=== PATIENT | female | born 1955 | race Caucasian/White ===

== ENCOUNTER 2016-10-17 11:30 | Inpatient (IN) | payer MEDICARE, OTHER ==
[~2016-10-17] VITALS: Ht 157.5 cm; Wt 42.6 kg
[~2016-10-17 11:30] MED LIST: ANTIVERT 25MG25 MG PO; CELEXA40 MG PO; DIFLUCAN 100MG100 MG PO; INDERAL LA 80MG80 MG PO; KEPPRA XR500 MG PO; NEXIUM 40MG40 MG PO; OMNICEF 300MG300 MG PO; PAMELOR 25MG25 MG PO; TOPAMAX50 MG PO; ZOFRAN 4MG T4 MG/TAB PO
[2016-10-17] MEDS ORDERED: PROLIA60 MG/ML SC (12:01)
[2016-10-17] MEDS ORDERED: D3-5050000 IU PO (12:02)
[2016-10-17 12:39] VITALS: BP 109/60; PULSE 65; TEMP 97.4
[2016-10-17 12:43] VITALS: BP 109/60; PULSE 65; TEMP 97.4
[2016-10-17 15:35] VITALS: BP 126/58; PULSE 73; TEMP 97.4
[2016-10-17 16:35] VITALS: BP 116/57; PULSE 73
[2016-10-17 18:20] LABS: BASO % 0.3 % (0.0-2.0); EOS # 0.2 (0.0-0.7); EOS % 3.3 % (0-4.0); GRAN # 4.2 (1.4-6.5); GRAN % 69.5 % (42.2-75.2); LYMPH # 1.2 (1.2-3.4); LYMPH % 20.6 % (20.0-51.0); MEAN CELL VOLUME 95 fl (80.0-100.0); MEAN CORPUSCULAR HGB CONC 32 g/dl (33.0-37.0); MEAN PLATELET VOLUME 10.4 fl (7.4-10.4); MONO # 0.4 (0.1-0.6); MONO % 5.8 % (1.7-9.3); PLATELET COUNT 148 K/mm3 (130-400); RED BLOOD COUNT 3.78 M/mm3 (4.10-5.30); REDCELL DISTRIBUTION WIDTH-CV 14.7 % (11.5-14.5)
[2016-10-17 18:22] LABS: HEMATOCRIT 35.9 % (37.0-47.0); HEMOGLOBIN 11.6 g/dl (12.5-16.0); MEAN CORPUSCULAR HEMOGLOBIN 31 pg (27.0-31.0)
[2016-10-17 18:29] LABS: ADJUSTED CALCIUM 8.5 mg/dL (8.4-10.2); ALBUMIN 2.5 gm/dL (3.5-5.0); BILIRUBIN,TOTAL 0.6 mg/dL (0.0-1.0); CALCIUM 7.3 mg/dL (8.4-10.2); CREATININE, serum 0.74 mg/dL (0.52-1.25); MAGNESIUM 1.7 mg/dL (1.6-2.3); PHOSPHOROUS 2.6 mg/dL (2.5-4.5); TOTAL PROTEIN 5.1 gm/dL (6.4-8.2)
[2016-10-17 20:33] VITALS: BP 129/49; PULSE 73; TEMP 97.5
[2016-10-17 23:12] VITALS: BP 113/65; PULSE 77; TEMP 98.5
[2016-10-17 23:54] LABS: PH 5 (5-8); SQUAMOUS EPITHELIAL 0-2 /hpf; URINE APPEARANCE Cloudy; URINE BACTERIA Moderate /hpf; URINE BILIRUBIN Negative (NEGATIVE); URINE BLOOD Negative (NEGATIVE); URINE COLOR Yellow; URINE GLUCOSE Negative (NEGATIVE); URINE KETONE 1+ (NEGATIVE); URINE RBC 0-2 /hpf; URINE UROBILINOGEN Negative (NEGATIVE); URINE WBC 20-50 /hpf
[2016-10-18 03:55] VITALS: BP 106/64; PULSE 78; TEMP 97.7
[2016-10-18 07:29] LABS: ADD PATHOLOGY DIFF REVIEW NO
[2016-10-18 07:38] LABS: INR 1.2 (0.8-3.0); PROTHROMBIN TIME 13.1 SECONDS (9.7-12.8)
[2016-10-18 07:40] LABS: MEAN CELL VOLUME 96 fl (80.0-100.0); MEAN CORPUSCULAR HGB CONC 32 g/dl (33.0-37.0); MEAN PLATELET VOLUME 11.1 fl (7.4-10.4); PLATELET COUNT 157 K/mm3 (130-400); RED BLOOD COUNT 3.46 M/mm3 (4.10-5.30); REDCELL DISTRIBUTION WIDTH-CV 14.9 % (11.5-14.5); WHITE BLOOD COUNT 6.8 K/mm3 (4.8-10.8)
[2016-10-18 07:46] LABS: HEMATOCRIT 33.1 % (37.0-47.0); HEMOGLOBIN 10.7 g/dl (12.5-16.0); MEAN CORPUSCULAR HEMOGLOBIN 31 pg (27.0-31.0)
[2016-10-18 07:53] VITALS: BP 115/56; PULSE 77; TEMP 98.3
[2016-10-18 08:07] LABS: ADJUSTED CALCIUM 8.2 mg/dL (8.4-10.2); ALBUMIN 2.2 gm/dL (3.5-5.0); BILIRUBIN,TOTAL 0.7 mg/dL (0.0-1.0); CALCIUM 6.8 mg/dL (8.4-10.2); CREATININE, serum 0.67 mg/dL (0.52-1.25); MAGNESIUM 1.5 mg/dL (1.6-2.3); PHOSPHOROUS 2.3 mg/dL (2.5-4.5); TOTAL PROTEIN 4.7 gm/dL (6.4-8.2)
[2016-10-18 08:13] LABS: POTASSIUM 2.9 mmol/L (3.4-5.0)
[2016-10-18 08:32] LABS: BAND 4 % (0-10); EOSINOPHIL 3 % (0-4); METAMYELOCYTE 1 % (0-0); NEUTROPHILS 70 % (42.0-75.2); PLATELET ESTIMATE NORMAL (NORMAL); TOTAL CELLS COUNTED 100
[2016-10-18] MEDS ORDERED: INDERAL40 MG PO (09:10)
[2016-10-18] MEDS ORDERED: INDERAL LA 80MG80 MG PO (09:12)
[2016-10-18] MEDS ORDERED: IMITREX100 MG PO (09:13)
[2016-10-18 12:43] VITALS: BP 110/65; PULSE 78; TEMP 97.9
[2016-10-18 17:28] VITALS: BP 118/58; PULSE 80; TEMP 97.6
[2016-10-18 20:49] VITALS: BP 141/71; PULSE 83; TEMP 98
[2016-10-18 23:58] VITALS: BP 120/66; PULSE 82; TEMP 98.2
[2016-10-19 04:05] VITALS: BP 131/72; PULSE 78; TEMP 97.7
[2016-10-19 07:57] VITALS: BP 132/70; PULSE 81; TEMP 97.8
[2016-10-19 08:40] LABS: ADJUSTED CALCIUM 7.9 mg/dL (8.4-10.2); ALANINE AMINOTRANSFERASE 29 U/L (9-52); ALBUMIN 2.3 gm/dL (3.5-5.0); ALKALINE PHOSPHATASE 61 U/L (50-136); ANION GAP 6 mmol/L (7-16); BILIRUBIN,TOTAL 0.5 mg/dL (0.0-1.0); CALCIUM 6.5 mg/dL (8.4-10.2); CARBON DIOXIDE 23 mmol/L (22-30); CHLORIDE 113 mmol/L (98-107); GLUCOSE 80 mg/dL (74-106); MAGNESIUM 2.4 mg/dL (1.6-2.3); PHOSPHOROUS 1.5 mg/dL (2.5-4.5); POTASSIUM 3.6 mmol/L (3.4-5.0); SODIUM 143 mmol/L (137-145); TOTAL PROTEIN 5.1 gm/dL (6.4-8.2)
[2016-10-19 08:41] LABS: BLOOD UREA NITROGEN < 2 mg/dL (7-17)
[2016-10-19 12:01] VITALS: BP 117/59; PULSE 81; TEMP 97.9
[2016-10-19 16:05] VITALS: BP 119/64; PULSE 84; TEMP 97.8
[2016-10-19 19:50] VITALS: BP 119/67; PULSE 90; TEMP 97.7
[2016-10-20 00:35] VITALS: BP 130/70; PULSE 88; TEMP 98
[2016-10-20 03:37] VITALS: BP 127/72; PULSE 90; TEMP 97.4
[2016-10-20 07:33] VITALS: BP 126/72; PULSE 96; TEMP 98.1
[2016-10-20 11:37] VITALS: BP 139/81; PULSE 98; TEMP 98.7
[2016-10-20 11:50] LABS: ADJUSTED CALCIUM 7.9 mg/dL (8.4-10.2); ALANINE AMINOTRANSFERASE 31 U/L (9-52); ALBUMIN 2.9 gm/dL (3.5-5.0); ALKALINE PHOSPHATASE 73 U/L (50-136); ANION GAP 11 mmol/L (7-16); BILIRUBIN,TOTAL 0.6 mg/dL (0.0-1.0); CARBON DIOXIDE 22 mmol/L (22-30); CHLORIDE 107 mmol/L (98-107); CREATININE, serum 0.59 mg/dL (0.52-1.25); GLUCOSE 79 mg/dL (74-106); MAGNESIUM 1.8 mg/dL (1.6-2.3); POTASSIUM 3.8 mmol/L (3.4-5.0); SODIUM 141 mmol/L (137-145); TOTAL PROTEIN 5.9 gm/dL (6.4-8.2)
[2016-10-20 12:00] LABS: BLOOD UREA NITROGEN < 2 mg/dL (7-17)
[2016-10-20 16:17] VITALS: BP 119/73; PULSE 101; TEMP 98.1
[2016-10-20 19:57] VITALS: BP 126/76; PULSE 105; TEMP 98.1
[2016-10-21 00:07] VITALS: BP 131/75; PULSE 90; TEMP 98.5
[2016-10-21 03:21] VITALS: BP 130/74; PULSE 82; TEMP 97.4
[2016-10-21 07:53] VITALS: BP 125/74; PULSE 72; TEMP 98.1
[2016-10-21 08:51] LABS: ANION GAP 6 mmol/L (7-16); CALCIUM 7.1 mg/dL (8.4-10.2); CARBON DIOXIDE 23 mmol/L (22-30); CHLORIDE 112 mmol/L (98-107); CREATININE, serum 0.64 mg/dL (0.52-1.25); GLUCOSE 69 mg/dL (74-106); MAGNESIUM 1.9 mg/dL (1.6-2.3); PHOSPHOROUS 2.5 mg/dL (2.5-4.5); POTASSIUM 4.5 mmol/L (3.4-5.0); SODIUM 140 mmol/L (137-145)
[2016-10-21 08:57] LABS: BLOOD UREA NITROGEN < 2 mg/dL (7-17)
[2016-10-21] MEDS ORDERED: CEFTIN500 MG PO (09:33)
[2016-10-21] MEDS ORDERED: PHOSPHA 250 NEU1 TAB PO (09:34)
[2016-10-21] MEDS ORDERED: CALCIUM 600 PLU1 TAB PO (09:34)
[2016-10-21] MEDS ORDERED: FOLIC ACID 11 MG/TA1 PO (09:35)
[2016-10-21] MEDS ORDERED: DUO-KAPS1 CAP PO (09:35)
[2016-10-21] MEDS ORDERED: MAG-OX 400400 MG/TAB PO (09:35)
[2016-10-21 11:13] VITALS: BP 123/70; PULSE 73; TEMP 98
== END 2016-10-21 13:27 | disposition home or self-care (01) | DRG 393 ==
LOC: MEDICAL 11:30
PROVIDERS: Internal Medicine; Internal Medicine Gastroenterology; Physician Assistant
PROC: 0D7A8ZZ Dilation of Jejunum, Via Natural or Artificial Opening Endoscopic (ICD-10-PCS; principal; 2016-10-17 14:30)
DX: K95.89 Other complications of other bariatric procedure (principal); E43 Unspecified severe protein-calorie malnutrition; B37.81 Candidal esophagitis; N39.0 Urinary tract infection, site not specified; Z68.1 Body mass index [BMI] 19.9 or less, adult; R13.10 Dysphagia, unspecified; G40.909 Epilepsy, unspecified, not intractable, without status epilepticus; K21.9 Gastro-esophageal reflux disease without esophagitis; F32.9 Major depressive disorder, single episode, unspecified; K31.89 Other diseases of stomach and duodenum; E83.42 Hypomagnesemia; E87.6 Hypokalemia; E83.39 Other disorders of phosphorus metabolism; B96.20 Unspecified Escherichia coli [E. coli] as the cause of diseases classified elsewhere; R53.81 Other malaise
CPT/HCPCS: 99223-AI; 99232-AI; 99233-AI; 99239; C1726; J0696; J1650; J2250; J2405; J3010; J3475; J7030

== ENCOUNTER 2016-10-24 13:16 | Day surgery (SDC) | payer MEDICARE, OTHER ==
[~2016-10-24] VITALS: Ht 157.5 cm; Wt 41.5 kg
[~2016-10-24 13:16] MED LIST changes: +CALCIUM 600 PLU1 TAB PO; +CEFTIN500 MG PO; +D3-5050000 IU PO; +DUO-KAPS1 CAP PO; +FOLIC ACID 11 MG/TA1 PO; +IMITREX100 MG PO; +INDERAL40 MG PO; +MAG-OX 400400 MG/TAB PO; +PHOSPHA 250 NEU1 TAB PO; +PROLIA60 MG/ML SC
[2016-10-24] MEDS ORDERED: NEXIUM 40MG40 MG PO (14:38)
[2016-10-24 14:52] VITALS: BP 93/69; PULSE 127; TEMP 97.1
[2016-10-24 16:35] VITALS: BP 105/73; PULSE 119
[2016-10-24 16:55] VITALS: BP 101/63; PULSE 121
== END 2016-10-24 16:57 | disposition home or self-care (01) ==
LOC: SDCO 13:16
DX: K31.2 Hourglass stricture and stenosis of stomach (principal); R11.0 Nausea; Z98.84 Bariatric surgery status
CPT/HCPCS: C1769; J2250; J3010; J7030

== ENCOUNTER 2016-11-09 13:34 | Emergency (ER) | payer MEDICARE, OTHER ==
[~2016-11-09] VITALS: Ht 157.5 cm; Wt 41.8 kg
[2016-11-09 13:35] VITALS: BP 119/74; TEMP 98.4
[2016-11-09 14:52] VITALS: PULSE 76
== END 2016-11-09 14:53 | disposition home or self-care (01) ==
LOC: COL.ER 13:34
DX: S00.83XA Contusion of other part of head, initial encounter (principal); W01.10XA Fall on same level from slipping, tripping and stumbling with subsequent striking against unspecified object, initial encounter; Y92.009 Unspecified place in unspecified non-institutional (private) residence as the place of occurrence of the external cause

== ENCOUNTER 2016-12-03 09:04 | Outpatient (CLI) | payer MEDICARE, OTHER ==
[2016-12-03 09:56] VITALS: BP 109/48; PULSE 77; TEMP 97.2
== END 2016-12-03 12:46 | disposition home or self-care (01) ==
LOC: EUO 09:04
DX: E86.0 Dehydration (principal)
CPT/HCPCS: J7030

== ENCOUNTER 2016-12-21 12:25 | Observation (INO) | payer MEDICARE ==
[~2016-12-21] VITALS: Ht 154.9 cm; Wt 42.9 kg
[2016-12-21] MEDS ORDERED: INDERAL LA 60MG60 MG PO (13:32)
[2016-12-21] MEDS ORDERED: TOPAMAX50 MG PO (13:33)
[2016-12-21] MEDS ORDERED: PAMELOR50 MG PO (13:34)
[2016-12-21] MEDS ORDERED: NEXIUM 40MG40 MG PO (13:34)
[2016-12-21] MEDS ORDERED: ZOFRAN8 MG PO (13:35)
[2016-12-21] MEDS ORDERED: KEPPRA XR500 MG PO (13:35)
[2016-12-21] MEDS ORDERED: IMITREX100 MG PO (13:36)
[2016-12-21] MEDS ORDERED: CELEXA40 MG PO (13:37)
[2016-12-21 13:50] LABS: PROTHROMBIN TIME 11.4 SECONDS (9.7-12.8)
[2016-12-21 13:52] LABS: HEMOGLOBIN 13.3 g/dl (12.5-16.0); MEAN CELL VOLUME 96 fl (80.0-100.0); MEAN CORPUSCULAR HEMOGLOBIN 32 pg (27.0-31.0); MEAN CORPUSCULAR HGB CONC 33 g/dl (33.0-37.0); MEAN PLATELET VOLUME 10.7 fl (7.4-10.4); RED BLOOD COUNT 4.18 M/mm3 (4.10-5.30); REDCELL DISTRIBUTION WIDTH-CV 14.4 % (11.5-14.5); WHITE BLOOD COUNT 7.5 K/mm3 (4.8-10.8)
[2016-12-21 13:53] LABS: PARTIAL THROMBOPLASTIN TIME 29.1 SECONDS (26.0-37.0)
[2016-12-21 14:04] LABS: PLATELET COUNT 173 K/mm3 (130-400)
[2016-12-21 14:05] LABS: ADD PATHOLOGY DIFF REVIEW NO
[2016-12-21 14:07] LABS: ADJUSTED CALCIUM 9.3 mg/dL (8.4-10.2); ALBUMIN 2.8 gm/dL (3.5-5.0); BILIRUBIN,TOTAL 0.9 mg/dL (0.0-1.0); CALCIUM 8.3 mg/dL (8.4-10.2); CREATININE, serum 0.66 mg/dL (0.52-1.25); MAGNESIUM 1.9 mg/dL (1.6-2.3); PHOSPHOROUS 3.3 mg/dL (2.5-4.5); POTASSIUM 3.6 mmol/L (3.4-5.0); TOTAL PROTEIN 5.4 gm/dL (6.4-8.2)
[2016-12-21 14:45] LABS: BAND 5 % (0-10); EOSINOPHIL 3 % (0-4); NEUTROPHILS 66 % (42.0-75.2); TOTAL CELLS COUNTED 100
[2016-12-21 14:47] LABS: PLATELET ESTIMATE NORMAL (NORMAL)
[2016-12-21 15:32] LABS: PH 5 (5-8); SQUAMOUS EPITHELIAL 0-2 /hpf; URINE APPEARANCE Hazy; URINE BACTERIA Occasional /hpf; URINE BILIRUBIN Negative (NEGATIVE); URINE BLOOD Negative (NEGATIVE); URINE COLOR Yellow; URINE GLUCOSE 3+ (NEGATIVE); URINE KETONE 2+ (NEGATIVE); URINE RBC 0-2 /hpf; URINE UROBILINOGEN Negative (NEGATIVE); URINE WBC 20-50 /hpf
[2016-12-21 17:27] VITALS: BP 119/50; PULSE 98; TEMP 97.7
[2016-12-21 19:30] VITALS: BP 130/51; PULSE 91; TEMP 97.8
[2016-12-21 23:16] VITALS: BP 104/49; PULSE 98; TEMP 98.5
[2016-12-22 03:32] VITALS: BP 107/50; PULSE 109; TEMP 98.2
[2016-12-22 07:35] VITALS: BP 132/54; PULSE 98; TEMP 97.1
[2016-12-22 11:43] VITALS: BP 93/62; PULSE 81
[2016-12-22 15:46] VITALS: BP 118/57; BP 98/54; PULSE 103; PULSE 77; TEMP 97.9; TEMP 99
[2016-12-22] MEDS ORDERED: CEFTIN250 MG/5 M PO (19:31)
[2016-12-22] MEDS ORDERED: MEGACE ORAL40 MG/ML PO (19:33)
[2016-12-22] MEDS ORDERED: NATURE'S BLEND100 M2 PO (19:41)
== END 2016-12-22 20:38 | disposition home or self-care (01) ==
LOC: COL.ER 12:25 → MEDICAL 15:09
PROVIDERS: Emergency Medicine
DX: N39.0 Urinary tract infection, site not specified (principal); B96.20 Unspecified Escherichia coli [E. coli] as the cause of diseases classified elsewhere; E43 Unspecified severe protein-calorie malnutrition; R64 Cachexia; Z98.84 Bariatric surgery status; F32.9 Major depressive disorder, single episode, unspecified; G43.909 Migraine, unspecified, not intractable, without status migrainosus; G40.909 Epilepsy, unspecified, not intractable, without status epilepticus; M81.0 Age-related osteoporosis without current pathological fracture; K21.9 Gastro-esophageal reflux disease without esophagitis; Z87.440 Personal history of urinary (tract) infections; R42 Dizziness and giddiness
CPT/HCPCS: G0378; J0696; J3411; J3475; J7030

== ENCOUNTER 2017-01-05 12:38 | Outpatient (CLI) | payer MEDICARE, OTHER ==
[~2017-01-05] VITALS: Ht 154.9 cm; Wt 40.4 kg
[~2017-01-05 12:38] MED LIST changes: +CEFTIN250 MG/5 M PO; +INDERAL LA 60MG60 MG PO; +MEGACE ORAL40 MG/ML PO; +NATURE'S BLEND100 M2 PO; +PAMELOR50 MG PO; +ZOFRAN8 MG PO
[2017-01-05 12:57] VITALS: BP 100/50; PULSE 76; TEMP 97.1
== END 2017-01-05 15:19 | disposition home or self-care (01) ==
LOC: EUO 12:38
DX: E86.0 Dehydration (principal); N39.0 Urinary tract infection, site not specified; R63.4 Abnormal weight loss
CPT/HCPCS: J7030

== ENCOUNTER 2017-01-13 10:50 | Outpatient (CLI) | payer MEDICARE, OTHER ==
[~2017-01-13] VITALS: Ht 154.9 cm; Wt 38.1 kg
[2017-01-13 11:54] VITALS: BP 109/67; PULSE 88; TEMP 98
== END 2017-01-13 14:20 | disposition home or self-care (01) ==
LOC: EUO 10:50
DX: E46 Unspecified protein-calorie malnutrition (principal); E86.0 Dehydration; Z98.84 Bariatric surgery status; K31.89 Other diseases of stomach and duodenum; M89.8X9 Other specified disorders of bone, unspecified site; N39.0 Urinary tract infection, site not specified
CPT/HCPCS: J0696; J7040; Q9967

== ENCOUNTER 2017-02-16 19:51 | Emergency (ER) | payer MEDICARE, OTHER ==
[~2017-02-16] VITALS: Ht 157.5 cm; Wt 38.2 kg
[2017-02-16 19:57] VITALS: TEMP 97.7
[2017-02-16] MEDS ORDERED: PAMELOR75 MG PO (20:27)
[2017-02-16 20:53] LABS: BASO % 0.6 % (0.0-2.0); EOS # 0.1 (0.0-0.7); EOS % 1.7 % (0-4.0); GRAN # 5.2 (1.4-6.5); GRAN % 72.1 % (42.2-75.2); HEMATOCRIT 35.1 % (37.0-47.0); HEMOGLOBIN 11.9 g/dl (12.5-16.0); LYMPH # 1.4 (1.2-3.4); LYMPH % 18.9 % (20.0-51.0); MEAN CELL VOLUME 93 fl (80.0-100.0); MEAN CORPUSCULAR HEMOGLOBIN 32 pg (27.0-31.0); MEAN CORPUSCULAR HGB CONC 34 g/dl (33.0-37.0); MEAN PLATELET VOLUME 10.8 fl (7.4-10.4); MONO # 0.5 (0.1-0.6); MONO % 6.4 % (1.7-9.3); PLATELET COUNT 211 K/mm3 (130-400); RED BLOOD COUNT 3.76 M/mm3 (4.10-5.30); REDCELL DISTRIBUTION WIDTH-CV 14.1 % (11.5-14.5); WHITE BLOOD COUNT 7.2 K/mm3 (4.8-10.8)
[2017-02-16 21:18] LABS: ADJUSTED CALCIUM 8.8 mg/dL (8.4-10.2); ALANINE AMINOTRANSFERASE 35 U/L (9-52); ALBUMIN 2.4 gm/dL (3.5-5.0); ALKALINE PHOSPHATASE 76 U/L (50-136); ANION GAP 9 mmol/L (7-16); BILIRUBIN,TOTAL 0.6 mg/dL (0.0-1.0); BLOOD UREA NITROGEN 14 mg/dL (7-17); CALCIUM 7.5 mg/dL (8.4-10.2); CARBON DIOXIDE 23 mmol/L (22-30); CHLORIDE 108 mmol/L (98-107); GLUCOSE 85 mg/dL (74-106); LIPASE 48 U/L (23-300); SODIUM 140 mmol/L (137-145)
[2017-02-16 21:23] LABS: PH 5 (5-8); SQUAMOUS EPITHELIAL 0-2 /hpf; URINE APPEARANCE Hazy; URINE BACTERIA Rare /hpf; URINE BILIRUBIN Positive (NEGATIVE); URINE BLOOD Negative (NEGATIVE); URINE COLOR Amber; URINE GLUCOSE Negative (NEGATIVE); URINE KETONE Trace (NEGATIVE); URINE RBC 0-2 /hpf; URINE WBC 20-50 /hpf
[2017-02-16 21:24] LABS: C-REACTIVE PROTEIN < 0.5 mg/dL (0.0-0.9); POTASSIUM 2.6 mmol/L (3.4-5.0)
[2017-02-16] MEDS ORDERED: MACROBID 1100 MG/CAP PO (21:27)
[2017-02-16] MEDS ORDERED: MICRO-K 10 EXT10 MEQ PO (21:31)
[2017-02-16 22:19] VITALS: BP 126/71; PULSE 75
== END 2017-02-16 22:20 | disposition home or self-care (01) ==
LOC: COL.ER 19:51
PROVIDERS: Family Medicine
DX: E87.6 Hypokalemia (principal); E86.0 Dehydration; N39.0 Urinary tract infection, site not specified; G40.909 Epilepsy, unspecified, not intractable, without status epilepticus; F32.9 Major depressive disorder, single episode, unspecified; Z98.84 Bariatric surgery status; E46 Unspecified protein-calorie malnutrition; Z68.1 Body mass index [BMI] 19.9 or less, adult
CPT/HCPCS: J2405; J7030

== ENCOUNTER 2017-02-19 16:29 | Emergency (ER) | payer MEDICARE, OTHER ==
[~2017-02-19] VITALS: Ht 157.5 cm; Wt 39.5 kg
[~2017-02-19 16:29] MED LIST changes: +MACROBID 1100 MG/CAP PO; +MICRO-K 10 EXT10 MEQ PO; +PAMELOR75 MG PO
[2017-02-19 16:31] VITALS: TEMP 98.5
[2017-02-19 17:22] LABS: BASO % 0.4 % (0.0-2.0); EOS # 0.1 (0.0-0.7); EOS % 1.3 % (0-4.0); GRAN # 5.7 (1.4-6.5); GRAN % 75.3 % (42.2-75.2); LYMPH # 1.3 (1.2-3.4); LYMPH % 17.4 % (20.0-51.0); MEAN CELL VOLUME 93 fl (80.0-100.0); MEAN CORPUSCULAR HGB CONC 34 g/dl (33.0-37.0); MEAN PLATELET VOLUME 10.8 fl (7.4-10.4); MONO # 0.4 (0.1-0.6); MONO % 5.3 % (1.7-9.3); PLATELET COUNT 199 K/mm3 (130-400); REDCELL DISTRIBUTION WIDTH-CV 14.5 % (11.5-14.5); WHITE BLOOD COUNT 7.5 K/mm3 (4.8-10.8)
[2017-02-19 17:23] LABS: HEMATOCRIT 33.6 % (37.0-47.0); HEMOGLOBIN 11.5 g/dl (12.5-16.0); MEAN CORPUSCULAR HEMOGLOBIN 32 pg (27.0-31.0)
[2017-02-19 17:34] LABS: ADJUSTED CALCIUM 8.3 mg/dL (8.4-10.2); ALBUMIN 2.2 gm/dL (3.5-5.0); BILIRUBIN,TOTAL 0.4 mg/dL (0.0-1.0); C-REACTIVE PROTEIN 0.6 mg/dL (0.0-0.9); CALCIUM 6.9 mg/dL (8.4-10.2); CREATININE, serum 0.65 mg/dL (0.52-1.25); POTASSIUM 3.1 mmol/L (3.4-5.0); TOTAL PROTEIN 4.8 gm/dL (6.4-8.2)
[2017-02-19 17:36] LABS: PH 6 (5-8); SQUAMOUS EPITHELIAL 0-2 /hpf; URINE APPEARANCE Clear; URINE BACTERIA None Seen /hpf; URINE BILIRUBIN Negative (NEGATIVE); URINE BLOOD Negative (NEGATIVE); URINE COLOR Yellow; URINE GLUCOSE Negative (NEGATIVE); URINE KETONE Trace (NEGATIVE); URINE UROBILINOGEN Negative (NEGATIVE); URINE WBC >50 /hpf
[2017-02-19 18:18] VITALS: BP 111/49; PULSE 79
== END 2017-02-19 18:26 | disposition home or self-care (01) ==
LOC: COL.ER 16:29
PROVIDERS: Family Medicine
DX: N30.00 Acute cystitis without hematuria (principal); B95.7 Other staphylococcus as the cause of diseases classified elsewhere; K29.70 Gastritis, unspecified, without bleeding; K21.9 Gastro-esophageal reflux disease without esophagitis; G40.909 Epilepsy, unspecified, not intractable, without status epilepticus; G43.809 Other migraine, not intractable, without status migrainosus; Z90.49 Acquired absence of other specified parts of digestive tract; Z98.84 Bariatric surgery status; Z98.890 Other specified postprocedural states
CPT/HCPCS: C9113; J2550; J7030

== ENCOUNTER 2017-03-16 21:31 | Emergency (ER) | payer MEDICARE, OTHER ==
[~2017-03-16] VITALS: Ht 157.5 cm; Wt 39.5 kg
[2017-03-16 21:35] VITALS: TEMP 98.2
[2017-03-16 22:39] LABS: BASO % 0.6 % (0.0-2.0); EOS # 0.1 (0.0-0.7); EOS % 2.6 % (0-4.0); GRAN % 59.9 % (42.2-75.2); HEMATOCRIT 33.6 % (37.0-47.0); LYMPH # 1.4 (1.2-3.4); LYMPH % 27.7 % (20.0-51.0); MEAN CELL VOLUME 98 fl (80.0-100.0); MEAN CORPUSCULAR HEMOGLOBIN 32 pg (27.0-31.0); MEAN CORPUSCULAR HGB CONC 33 g/dl (33.0-37.0); MEAN PLATELET VOLUME 10.6 fl (7.4-10.4); MONO # 0.5 (0.1-0.6); PLATELET COUNT 233 K/mm3 (130-400); RED BLOOD COUNT 3.42 M/mm3 (4.10-5.30); REDCELL DISTRIBUTION WIDTH-CV 17.2 % (11.5-14.5)
[2017-03-16 22:51] LABS: ALANINE AMINOTRANSFERASE 47 U/L (9-52); ALBUMIN 2.1 gm/dL (3.5-5.0); ALKALINE PHOSPHATASE 67 U/L (50-136); ANION GAP 5 mmol/L (7-16); BILIRUBIN,TOTAL 0.4 mg/dL (0.0-1.0); BLOOD UREA NITROGEN 9 mg/dL (7-17); C-REACTIVE PROTEIN < 0.5 mg/dL (0.0-0.9); CALCIUM 7.5 mg/dL (8.4-10.2); CARBON DIOXIDE 24 mmol/L (22-30); CHLORIDE 109 mmol/L (98-107); CREATININE, serum 0.74 mg/dL (0.52-1.25); GLUCOSE 70 mg/dL (74-106); PHOSPHOROUS 3.2 mg/dL (2.5-4.5); POTASSIUM 3.5 mmol/L (3.4-5.0); SODIUM 138 mmol/L (137-145); TOTAL PROTEIN 4.6 gm/dL (6.4-8.2)
[2017-03-16 23:00] LABS: B-TYPE NATRIURETIC PEPTIDE 329 pg/mL (0-125); TROPONIN-I 0.018 ng/mL (0.000-0.034)
[2017-03-17 02:26] VITALS: BP 105/67; PULSE 80
== END 2017-03-17 02:29 | disposition home or self-care (01) ==
LOC: COL.ER 21:31
PROVIDERS: Emergency Medicine
DX: E16.2 Hypoglycemia, unspecified (principal); E46 Unspecified protein-calorie malnutrition; R60.0 Localized edema; G40.909 Epilepsy, unspecified, not intractable, without status epilepticus; Z98.84 Bariatric surgery status
CPT/HCPCS: J3411; J7030

== ENCOUNTER 2017-04-24 07:03 | Day surgery (SDC) | payer MEDICARE ==
[~2017-04-24] VITALS: Ht 157.5 cm; Wt 40.5 kg
[2017-04-24 07:46] VITALS: BP 113/72; PULSE 89; TEMP 97.9
[2017-04-24] MEDS ORDERED: DEXILANT60 MG PO (07:52)
[2017-04-24] MEDS ORDERED: GAS RELIEF80 MG PO (07:55)
[2017-04-24 08:48] VITALS: BP 103/55; PULSE 91; TEMP 96.6
[2017-04-24 09:00] VITALS: BP 112/67; PULSE 97
[2017-04-24 09:15] VITALS: BP 94/59; PULSE 99
[2017-04-24 09:30] VITALS: BP 102/54; PULSE 99
== END 2017-04-24 10:00 | disposition home or self-care (01) ==
LOC: SDCO 07:03
DX: K31.89 Other diseases of stomach and duodenum (principal); K20.9 Esophagitis, unspecified; E46 Unspecified protein-calorie malnutrition; Z98.84 Bariatric surgery status
CPT/HCPCS: C1726; J2250; J2405; J3010